=== PATIENT | female | born 1940 | race Caucasian/White ===

== ENCOUNTER 2016-06-07 09:18 | Outpatient (RCR) | payer MEDICARE, OTHER ==
[~2016-06-07 09:18] MED LIST: ANTIVERT 25MG25 MG PO; ASPIR-LOW81 MG PO; ATIVAN 0.50.5 MG/TAB PO; BENICAR/HCTZ PO; BENICAR20 MG PO; BENICAR5 MG PO; CALTRATE-600 W600 MG PO; FISH OIL CONC1000 MG PO; FISH OIL500 MG PO; FLOVENT DI50 MCG/Act; GLUCOSAMINE PO; IRON FERROUS S325 MG PO; IRON PLUS PO; LISINOPRIL/HCTZ1 TAB PO; NIACIN TIME RE500 MG PO; PRILOSEC PO; STOOL SOFTENER100 MG PO; TRIAMTERENE AND1 TA1 PO; TYLENOL 325MG325 MG PO; ZOFRAN 4MG T4 MG/TAB PO
== END 2016-09-05 | disposition still patient (30) ==
LOC: MKS.ESL.PT
DX: H83.01 Labyrinthitis, right ear (principal)
CPT/HCPCS: G8978-GP; G8979-GP

== ENCOUNTER → 2016-08-30 | Outpatient (CLI) | payer MEDICARE, OTHER | LOC: MC.RAD 10:20 | DX: Z12.31 Encounter for screening mammogram for malignant neoplasm of breast (principal); N63 Unspecified lump in breast ==

== ENCOUNTER → 2016-09-01 | Outpatient (CLI) | payer MEDICARE, OTHER | LOC: MC.RAD 14:00 | DX: N63 Unspecified lump in breast (principal) ==

== ENCOUNTER → 2018-01-31 | Outpatient (CLI) | payer MEDICARE, OTHER | LOC: MC.RAD 13:00 | DX: Z12.31 Encounter for screening mammogram for malignant neoplasm of breast (principal) ==

== ENCOUNTER → 2018-08-04 | Outpatient (CLI) | payer MEDICARE, OTHER | LOC: COL.RAD 08:23 | DX: E21.3 Hyperparathyroidism, unspecified (principal) | CPT/HCPCS: A9500 ==

== ENCOUNTER → 2019-03-13 | Outpatient (CLI) | payer MEDICARE, OTHER | LOC: MC.RAD 10:30 | DX: Z12.31 Encounter for screening mammogram for malignant neoplasm of breast (principal); N60.19 Diffuse cystic mastopathy of unspecified breast; N64.89 Other specified disorders of breast ==

== ENCOUNTER 2019-04-04 03:41 | Observation (INO) | payer MEDICARE, OTHER ==
[~2019-04-04] VITALS: Ht 165.1 cm; Wt 74.8 kg
[2019-04-04] VITALS (9 sets, daily range): BP systolic 103–143; BP diastolic 54–82; PULSE 52–69; TEMP 97.9–98.4
[2019-04-04] MEDS ORDERED: HYZAAR 50-12.1 UDTAB PO (03:54)
[2019-04-04 04:55] LABS: BASO % 0.5 % (0.0-2.0); EOS # 0.2 (0.0-0.7); EOS % 2.7 % (0-4.0); GRAN # 4.2 (1.4-6.5); GRAN % 71.4 % (42.2-75.2); HEMATOCRIT 43.7 % (37.0-47.0); HEMOGLOBIN 13.8 g/dl (12.5-16.0); LYMPH # 0.9 (1.2-3.4); MEAN CELL VOLUME 91 fl (80.0-100.0); MEAN CORPUSCULAR HEMOGLOBIN 29 pg (27.0-31.0); MEAN CORPUSCULAR HGB CONC 32 g/dl (33.0-37.0); MEAN PLATELET VOLUME 9.6 fl (7.4-10.4); MONO # 0.6 (0.1-0.6); MONO % 10.1 % (1.7-9.3); PLATELET COUNT 211 K/mm3 (130-400); RED BLOOD COUNT 4.81 M/mm3 (4.10-5.30); REDCELL DISTRIBUTION WIDTH-CV 13.2 % (11.5-14.5)
[2019-04-04 05:05] LABS: ALANINE AMINOTRANSFERASE 29 U/L (9-52); ALKALINE PHOSPHATASE 56 U/L (50-136); ANION GAP 7 mmol/L (7-16); AST,SGOT 29 U/L (15-37); BILIRUBIN,TOTAL 0.4 mg/dL (0.0-1.0); BLOOD UREA NITROGEN 18 mg/dL (7-17); CALCIUM 9.8 mg/dL (8.4-10.2); CARBON DIOXIDE 29 mmol/L (22-30); CHLORIDE 107 mmol/L (98-107); CREATININE, serum 0.79 (0.52-1.25); GLUCOSE 140 mg/dL (74-106); PHOSPHOROUS 3.1 mg/dL (2.5-4.5); POTASSIUM 3.4 mmol/L (3.4-5.0); SODIUM 143 mmol/L (137-145); TOTAL PROTEIN 6.9 gm/dL (6.4-8.2)
[2019-04-04 05:19] LABS: TROPONIN-I < 0.012 ng/mL (0.000-0.035)
[2019-04-04] MEDS ORDERED: MULTI VITAMINS1 TAB PO (06:17)
[2019-04-04 07:04] LABS: COLLECTION METHOD CLEAN CATCH
--- NOTE | 2019-04-04 07:09 | NUR ---
Report given to day shift nurse.
[2019-04-04 07:15] LABS: PH 6 (5-8); SQUAMOUS EPITHELIAL 0-2 /hpf; URINE APPEARANCE Clear; URINE BACTERIA None Seen /hpf; URINE BILIRUBIN Negative (NEGATIVE); URINE BLOOD Negative (NEGATIVE); URINE COLOR Yellow; URINE GLUCOSE Negative (NEGATIVE); URINE KETONE Negative (NEGATIVE); URINE LEUKOCYTE ESTERASE Negative (NEGATIVE); URINE NITRATE Negative (NEGATIVE); URINE PROTEIN(semi-quant) Negative (NEGATIVE); URINE RBC 0-2 /hpf; URINE UROBILINOGEN Negative (NEGATIVE)
[2019-04-04] MEDS ORDERED: CBD CREAM (09:40)
--- NOTE | 2019-04-04 09:49 | NUR ---
Bmet attended clinical rounds with the team. SW then met with patient to discuss discharge planning. Patient lives about 20 minutes outside of [facility] with her , Rmey (ph#[phone]). Patient sees Dr. Denton for primary care and obtains medications from [facility] in [place] with no difficulties. Patient has a cane and walker she uses as needed for back problems, but reports overall independence with ADLS. Patient plans to return home upon discharge. No additional concerns at this time.
--- NOTE | 2019-04-04 10:03 | NUR ---
Initial visit; Patient thanked Roll Threader Operator for looking in on her and offering God's blessings.
--- NOTE | 2019-04-04 10:08 | NUR ---
Assessment complete. Patient sitting up in chair. Alert and oriented. She has no complaints of pain or discomfort. IV site is CD&I, flushed well. No further needs were expressed. Call light is within reach.
--- NOTE | 2019-04-04 18:38 | NUR ---
Patient has had an uneventful day. She is strongly suggesting that she really wants to go home and that she does not need to be here. She was reminded that she is here to be monitored due to her syncopal episode and her bradycardia. Other than that patient has had no other complaints and has been comfortable all day. Call light within reach.
--- NOTE | 2019-04-04 20:30 | NUR ---
Patient assessed at this time. Alert and oriented x 4, and able to make needs known. Denies having pain and discomfort at this time. Peripheral IV to right AC flushed. Site is without redness, warmth, swelling, and pain. Denies having SOB and dyspnea. LS CTA. Respirations even and unlabored. HRR. Telemetry in place: sinus. Capillary refill less than 3 seconds. Non-tenting skin turgor. BSAx4. Abdomen soft and non-tender. Voices no questions, needs, or concerns at this time.
[2019-04-05 04:01] VITALS: BP 111/59; PULSE 67; TEMP 98.4
--- NOTE | 2019-04-05 04:54 | NUR ---
Patient has denied having pain and discomfort this shift. Has voiced no questions, needs, or concerns this shift. Call light is within reach.
--- NOTE | 2019-04-05 07:09 | NUR ---
Report given to day shift nurse.
[2019-04-05 08:30] VITALS: BP 135/67; PULSE 61; TEMP 97.9
[2019-04-05 09:26] LABS: BASO % 0.7 % (0.0-2.0); EOS # 0.2 (0.0-0.7); EOS % 2.9 % (0-4.0); GRAN # 3.7 (1.4-6.5); GRAN % 65.7 % (42.2-75.2); HEMATOCRIT 41.4 % (37.0-47.0); HEMOGLOBIN 13.1 g/dl (12.5-16.0); LYMPH # 1.3 (1.2-3.4); LYMPH % 22.8 % (20.0-51.0); MEAN CELL VOLUME 92 fl (80.0-100.0); MEAN CORPUSCULAR HEMOGLOBIN 29 pg (27.0-31.0); MEAN CORPUSCULAR HGB CONC 32 g/dl (33.0-37.0); MEAN PLATELET VOLUME 10.3 fl (7.4-10.4); MONO # 0.4 (0.1-0.6); MONO % 7.5 % (1.7-9.3); PLATELET COUNT 221 K/mm3 (130-400); RED BLOOD COUNT 4.52 M/mm3 (4.10-5.30); REDCELL DISTRIBUTION WIDTH-CV 13.3 % (11.5-14.5)
[2019-04-05 09:29] LABS: CALCIUM 9.8 mg/dL (8.4-10.2); CREATININE, serum 0.88 (0.52-1.25); POTASSIUM 4.1 mmol/L (3.4-5.0)
[2019-04-05 10:00] LABS: THYROID STIMULATING HORMONE 0.61 uIU/mL (0.465-4.680)
--- NOTE | 2019-04-05 10:02 | NUR ---
Assessment complete. Patient sitting in recliner. She states "I just really want to go home". She is aware of her plan of care. VS were stable and she denied any pain. She also denied any dizziness or headache. No further needs from the patient were expressed. Call light is within reach.
[2019-04-05 12:15] VITALS: BP 140/62; PULSE 62; TEMP 98
[2019-04-05] MEDS ORDERED: COZAAR 25MG25 MG/TAB PO (12:26)
--- NOTE | 2019-04-05 13:03 | NUR ---
Patient walked out at this time. Discharge instructions were discussed.
== END 2019-04-05 13:16 | disposition home or self-care (01) ==
LOC: COL.ER 03:41 → MEDICAL 05:31
PROVIDERS: Emergency Medicine; Nurse Practitioner Family; ADMIT Student in an Organized Health Care Education/Training Program
DX: R55 Syncope and collapse (principal); I07.1 Rheumatic tricuspid insufficiency; Z86.73 Personal history of transient ischemic attack (TIA), and cerebral infarction without residual deficits; Z88.8 Allergy status to other drugs, medicaments and biological substances; Z79.82 Long term (current) use of aspirin; Z90.710 Acquired absence of both cervix and uterus
CPT/HCPCS: G0378; J7030

== ENCOUNTER 2020-05-28 11:24 | Emergency (ER) | payer MEDICARE, OTHER ==
[2004-11-24 09:02] VITALS: BP 135/71
[~2020-05-28] VITALS: Ht 167.6 cm; Wt 74.1 kg
[~2020-05-28 11:24] MED LIST changes: +CBD CREAM; +COZAAR 25MG25 MG/TAB PO; +HYZAAR 50-12.1 UDTAB PO; +MULTI VITAMINS1 TAB PO
[2020-05-28 11:53] VITALS: PULSE 58; TEMP 97.2
[2020-05-28 13:22] VITALS: BP 168/97
[2020-05-28] MEDS ORDERED: MICROZIDE12.5 MG PO (16:31)
== END 2020-05-28 13:22 | disposition left against medical advice (07) ==
LOC: COL.ER 11:24
DX: I10 Essential (primary) hypertension (principal); Z88.8 Allergy status to other drugs, medicaments and biological substances; Z79.82 Long term (current) use of aspirin; Z79.02 Long term (current) use of antithrombotics/antiplatelets

== ENCOUNTER 2020-05-28 14:24 | Observation (INO) | payer MEDICARE, OTHER ==
[~2020-05-28] VITALS: Ht 167.7 cm; Wt 76.3 kg
--- NOTE | 2020-05-28 16:26 | NUR ---
Pt admitted to medical unit rm 315, sitting up by the window, A&O x 4. Pt ambulating in room with steady gait. Pt reports having chest pressure earlier today, none at this time. POC reviewed with pt and room orientation reviewed. No further needs reported. Call light in reach.
[2020-05-28] MEDS ORDERED: MICROZIDE12.5 MG PO (16:31)
[2020-05-28 17:00] VITALS: BP 151/93; PULSE 75; TEMP 97.5
[2020-05-28 17:04] LABS: BASO % 0.6 % (0.0-2.0); EOS # 0.1 (0.0-0.7); GRAN # 4.9 (1.4-6.5); GRAN % 69.2 % (42.2-75.2); HEMATOCRIT 46.5 % (37.0-47.0); HEMOGLOBIN 15.2 g/dl (12.5-16.0); LYMPH # 1.4 (1.2-3.4); LYMPH % 19.5 % (20.0-51.0); MEAN CELL VOLUME 86 fl (80.0-100.0); MEAN CORPUSCULAR HEMOGLOBIN 28 pg (27.0-31.0); MEAN CORPUSCULAR HGB CONC 33 g/dl (33.0-37.0); MONO # 0.6 (0.1-0.6); MONO % 8.4 % (1.7-9.3); PLATELET COUNT 252 K/mm3 (130-400); RED BLOOD COUNT 5.39 M/mm3 (4.10-5.30); REDCELL DISTRIBUTION WIDTH-CV 13.8 % (11.5-14.5)
[2020-05-28 17:09] LABS: INR 1.1 (0.8-3.0); PROTHROMBIN TIME 11.8 SECONDS (9.7-12.8)
[2020-05-28 17:12] LABS: PARTIAL THROMBOPLASTIN TIME 30.3 SECONDS (26.0-37.0)
--- NOTE | 2020-05-28 18:52 | NUR ---
Pt resting in bed, denies pain or needs at this time. Report with JESSICA Joyner. Call light in reach.
[2020-05-28 19:12] VITALS: BP 150/86; PULSE 72; TEMP 97.7
[2020-05-28 19:13] LABS: ALANINE AMINOTRANSFERASE 23 U/L (4-34); ALBUMIN 4.6 gm/dL (3.5-5.0); ALKALINE PHOSPHATASE 57 U/L (50-136); ANION GAP 6 mmol/L (7-16); AST,SGOT 37 U/L (15-37); BLOOD UREA NITROGEN 14 mg/dL (7-17); CARBON DIOXIDE 33 mmol/L (22-30); CHLORIDE 100 mmol/L (98-107); CHOLESTEROL 262 mg/dL (120-200); CHOLESTEROL RISK RATIO 4.5; CREATINE KINASE 189 U/L (30-135); CREATININE, serum 0.81 (0.52-1.25); GLUCOSE 128 mg/dL (74-106); HDL CHOLESTEROL 57 mg/dL; LDL CHOLESTEROL 189 mg/dL; MAGNESIUM 2.1 mg/dL (1.6-2.3); POTASSIUM 3.5 mmol/L (3.4-5.0); SODIUM 139 mmol/L (137-145); TOTAL PROTEIN 7.9 gm/dL (6.4-8.2); TRIGLYCERIDE 80 mg/dL
[2020-05-28 19:23] LABS: TROPONIN-I < 0.012 ng/mL (0.000-0.035)
[2020-05-28 23:49] VITALS: BP 126/69; PULSE 73; TEMP 98
[2020-05-29] VITALS (28 sets, daily range): BP systolic 66–154; BP diastolic 34–87; PULSE 60–96; TEMP 97.6–98.3
--- NOTE | 2020-05-29 04:52 | NUR ---
PT SLEPT THROUGH NIGHT. DENIES ANY CHEST PRESSURE. REMAINS NPO FOR TEST. NEEDS MET.
--- NOTE | 2020-05-29 07:00 | NUR ---
Report with JESSICA Joyner. Pt sitting up in chair visiting with radiology nurse, denies needs at this time. Call light in reach.
--- NOTE | 2020-05-29 07:45 | NUR ---
Assessment complete. Pt sitting up in chair, A&O x 4, denies pain at this time. Physical assessment unremarkable. Saline lock IV to left AC without s/s of complications. POC for testing reviewed with pt. No further needs reported. Call light in reach.
--- NOTE | 2020-05-29 09:00 | NUR ---
Pt off floor to [facility] for stress test.
--- NOTE | 2020-05-29 09:28 | NUR ---
REDRESSED SITE. NO LEAKING OR INFILTRATION
--- NOTE | 2020-05-29 09:41 | NUR ---
DR GU NOTIFIED OF PT CONDITION, ORDERS RECIEVED FOR NS BOLUS X1. JESSICA NOTIFIED.
--- NOTE | 2020-05-29 09:46 | NUR ---
NS BOLUS HUNG AND INFUSING.PT MUST KEEP HER ARM STRAIGHT
--- NOTE | 2020-05-29 11:16 | NUR ---
Pt back to room following testing, awake and alert but feeling worn out. PA notified of drop in BP during testing. BP meds held per verbal order. Coffee and water provided, will check on whether pt is allowed to eat lunch. No further needs reported. Call light in reach.
[2020-05-29 12:17] LABS: HEMATOCRIT 47.1 % (37.0-47.0); MEAN CELL VOLUME 89 fl (80.0-100.0); MEAN CORPUSCULAR HEMOGLOBIN 28 pg (27.0-31.0); MEAN CORPUSCULAR HGB CONC 32 g/dl (33.0-37.0); PLATELET COUNT 297 K/mm3 (130-400); RED BLOOD COUNT 5.32 M/mm3 (4.10-5.30); REDCELL DISTRIBUTION WIDTH-CV 13.9 % (11.5-14.5)
--- NOTE | 2020-05-29 15:19 | NUR ---
Line Person met with the patient and her , Remy to complete intake. The patient [place] in [place] with Remy. The patient denies DME use and is independent. The patient's PCP is Dr. Albright and patient receives medications from [facility]. The patient has advanced directives. The patient plans to return home at discharge. There are no additional needs.
--- NOTE | 2020-05-29 15:51 | NUR ---
Post lexiscan stress test another blood pressure was taken to ensure the patient was ready to go back for imagining. After blood pressure was taken patient was found to have a continous drop in blood pressure and progressivly worsening. Dr. Thakkar was notified and came to evaluate patient further. Medication was then given to patient by RN and patients blood pressure returned to normal and Dr. Raines cleared patient to go back for imaging.
--- NOTE | 2020-05-29 17:45 | NUR ---
Pt ambulating in hallway with steady gait, denies pain or needs. POC for tomorrow reviewed with pt.
--- NOTE | 2020-05-29 22:36 | NUR ---
2030- PT WALKING AROUND IN ROOM. ASSESSMNT AND VITALS COMPLETE. DENIES PAIN, SOA OR DIZZY. DOES STATE THAT SHE MORE TIRED THIS EVENING AND FEELS WORE OUT. WILL BE NPO AT 12 FOR AM HEART CATH. IV TO LEFT AC LEAKING AND PAINFUL. DC'D. IV NEW START TO RT FA. FLUSHED W GOOD BLOOD RETURN. SALINE LOCKED. SHOWERED AND READY FOR BED. POC DISCUSSED. NEEDS MET.
[2020-05-30] VITALS (10 sets, daily range): BP systolic 107–163; BP diastolic 67–90; PULSE 52–73; TEMP 97.9–98.2
--- NOTE | 2020-05-30 05:00 | NUR ---
SLEPT ALL NIGHT WITHOUT INCIDENT. NPO FOR HEART CATH. CONSENT SIGNED. ASPIRIN GIVEN PER ORDER W SIP OF WATER. NEEDS MET.
[2020-05-30 06:51] LABS: INR 1.1 (0.8-3.0); PROTHROMBIN TIME 12.3 SECONDS (9.7-12.8)
[2020-05-30 06:53] LABS: PARTIAL THROMBOPLASTIN TIME 34.2 SECONDS (26.0-37.0)
[2020-05-30 06:56] LABS: CREATININE, serum 0.77 (0.52-1.25); POTASSIUM 3.5 mmol/L (3.4-5.0)
--- NOTE | 2020-05-30 09:33 | NUR ---
Follow-up; Patient thanked Butadiene Convertor Operator for leaving her card yesterday while she was out of her room. Patient recalls visiting with Butadiene Convertor Operator a year ago when she was a patient for similar issues. Patient talked about her health and thanked Butadiene Convertor Operator for wishing her well and offering God's blessings.
--- NOTE | 2020-05-30 12:20 | NUR ---
Patient arrived back to room 315 from manager labor relations at this time, alert/oriented, vital signs stable, denies pain, right radial puncture site looks good, TR band in place with 15cc air, will begin to release pressure around 1345
--- NOTE | 2020-05-30 13:48 | NUR ---
Primary nurse was assisted with [id number] patient care by [employer] student Guerline Lopez and [employer] instructor Jeniffer Todd RN-.
--- NOTE | 2020-05-30 14:00 | NUR ---
released 5cc of air, no bleeding noted
--- NOTE | 2020-05-30 14:20 | NUR ---
continues to do well post heart cath, Vitals remain stable, TR band completlely deflated and no signs of bleeding or oozing
[2020-05-30] MEDS ORDERED: PLAVIX 75MG TAB75 MG PO (16:34)
[2020-05-30] MEDS ORDERED: COZAAR 25MG25 MG/TAB PO (16:35)
[2020-05-30] MEDS ORDERED: ZETIA 10MG TAB10 MG PO (16:35)
[2020-05-30] MEDS ORDERED: EPA FISH OIL1 SGL PO (16:35)
--- NOTE | 2020-05-30 16:55 | NUR ---
Patient discharging home, discussed new meds and med changes, scripts sent to pharmacy for her, isntructed to follow up as scheduled, IV and tele removed, right radial puncutre site looks good and bandaid applied, leaving with her , BIOINFORMATICS RESEARCH TECHNICIAN will escort her out the door
== END 2020-05-30 18:04 | disposition home or self-care (01) ==
LOC: MEDICAL 14:24
PROVIDERS: ADMIT Internal Medicine
DX: R07.89 Other chest pain (principal); I10 Essential (primary) hypertension; I25.10 Atherosclerotic heart disease of native coronary artery without angina pectoris; I25.9 Chronic ischemic heart disease, unspecified; G45.9 Transient cerebral ischemic attack, unspecified; I45.10 Unspecified right bundle-branch block; I08.1 Rheumatic disorders of both mitral and tricuspid valves; I44.0 Atrioventricular block, first degree; K44.9 Diaphragmatic hernia without obstruction or gangrene; R55 Syncope and collapse; I95.89 Other hypotension; Z20.822 Contact with and (suspected) exposure to COVID-19; Z86.73 Personal history of transient ischemic attack (TIA), and cerebral infarction without residual deficits; Z79.82 Long term (current) use of aspirin; Z79.899 Other long term (current) drug therapy
CPT/HCPCS: 99233-AI; A9500; C1769; G0378; J0280; J1644; J1650; J2250; J3010; J7030; Q9967

== ENCOUNTER 2021-11-13 08:21 | Day surgery (SDC) | payer MEDICARE ==
[2004-11-24 09:02] VITALS: BP 135/71
[2021-11-13] VITALS (12 sets, daily range): BP systolic 109–144; BP diastolic 64–82; PULSE 54–72; TEMP 97.4–99.1
[~2021-11-13] VITALS: Ht 167.6 cm; Wt 79.5 kg
[~2021-11-13 08:21] MED LIST changes: +EPA FISH OIL1 SGL PO; +MICROZIDE12.5 MG PO; +PLAVIX 75MG TAB75 MG PO; +ZETIA 10MG TAB10 MG PO
[2021-11-13 09:12] LABS: HEMATOCRIT 40.7 % (37.0-47.0); HEMOGLOBIN 13.4 g/dl (12.5-16.0); MEAN CELL VOLUME 87 fl (80.0-100.0); MEAN CORPUSCULAR HEMOGLOBIN 29 pg (27-31); MEAN CORPUSCULAR HGB CONC 33 g/dl (33.0-37.0); MEAN PLATELET VOLUME 9.6 fl (7.4-10.4); PLATELET COUNT 249 K/mm3 (130-400); RED BLOOD COUNT 4.66 M/mm3 (4.10-5.30); REDCELL DISTRIBUTION WIDTH-CV 13.3 % (11.5-14.5)
[2021-11-13] MEDS ORDERED: TAMBOCOR50 MG PO (09:23)
[2021-11-13] MEDS ORDERED: TOPROL XL 25MG25 MG PO (09:24)
[2021-11-13] MEDS ORDERED: ELIQUIS 5MG PO (09:25)
[2021-11-13 09:30] LABS: CALCIUM 10.4 mg/dL (8.4-10.2); CREATININE, serum 0.88 mg/dL (0.57-1.11); INR 1.1 (0.8-3.0); POTASSIUM 4.2 mmol/L (3.5-4.5); PROTHROMBIN TIME 12.5 SECONDS (9.7-12.8)
--- NOTE | 2021-11-13 11:19 | NUR ---
SEE MERGE FOR ALL MEDICATION ADMINISTRATION TIMES, INTRA AND POST SEDATION ASSESMENT.
--- NOTE | 2021-11-13 12:40 | NUR ---
PT TO ROOM 308 PER BED, VSS, PT A&O X4, PT ABLE TO MAKE NEEDS KNOWN, PT RESTING IN BED, DENIES PAIN, FALL PRECUATIONS IN PLACE, PT EDUCATED ON PLAN OF CARE, CALL LIGHT IN REACH
--- NOTE | 2021-11-13 23:29 | NUR ---
Pt alert and oriented. Follows commands. VS stable. On room air. Denies chest pain/SOB. Noted incision sites on the left upper chest and middle chest from pacemaker placement and loop recorder removal. Both dressings are clean/dry/intact. No edema/bleeding/bruising noted at the incision sites. Pt's left arm remains in sling. Post pacemaker placement education provided. HOB 30 degrees and ice applied to site. Pt up to void with standby assistance. threat monitoring analyst on. Fall precautions in place. Pt tolerating PO. Shift assessment performed. Medications administered per orders and education provided. No significant skin issues noted. PO antibx administered per orders. Bed low and locked, call erazo within reach. No other concerns at this time.
[2021-11-14 04:46] VITALS: BP 121/71; PULSE 61; TEMP 98.3
--- NOTE | 2021-11-14 05:13 | NUR ---
No adverse events overnight. Pt alert and oriented. VS stable. On room air. Pacemaker and loop recorder sites remain clean/dry/intact, no bleeding/edema/bruising noted. Left arm remains in sling. HOB 30 degrees. Ice applied overnight. Pt denies chest pain/SOB. Will perform device download this morning per orders. Telemetry on. Fall precautions in place. Bed low and locked, call erazo within reach. No new concerns at this time.
--- NOTE | 2021-11-14 07:38 | NUR ---
VSS, PT UP IN CHAIR, DENIES PAIN, FALL PRECATIONS IN PLACE, LUE IN SLING,
[2021-11-14 07:40] VITALS: BP 141/121; PULSE 72; TEMP 97.8
[2021-11-14] MEDS ORDERED: CEPHALEXIN500 M1 PO (08:01)
[2021-11-14] MEDS ORDERED: TAMBOCOR50 MG PO (08:01)
[2021-11-14 08:27] VITALS: BP 126/82
--- NOTE | 2021-11-14 09:54 | NUR ---
PT DISMISSED TO HOME, PT'S IV DC'D, PT EDUCATED ON DISMISSAL INSTRUCTIONS/MEDICATION INSTRUCTIONS/FOLLOW UP INSTRUCTIONS, PT VOICED NO QUESTIONS/CONCERN AT TIME OF DISMISSAL, PT AMBULATED TO EXIT, NO FURTHER CONCERNS
== END 2021-11-14 09:46 | disposition home or self-care (01) ==
LOC: COL.CAR 08:21 → MEDICAL 12:38 → COL.CAR 11-14 09:46
PROVIDERS: Internal Medicine Cardiovascular Disease
DX: I49.5 Sick sinus syndrome (principal); I48.0 Paroxysmal atrial fibrillation; I10 Essential (primary) hypertension; E78.2 Mixed hyperlipidemia; I45.5 Other specified heart block; I34.0 Nonrheumatic mitral (valve) insufficiency; I36.1 Nonrheumatic tricuspid (valve) insufficiency; Z91.89 Other specified personal risk factors, not elsewhere classified; Z79.01 Long term (current) use of anticoagulants; Z86.73 Personal history of transient ischemic attack (TIA), and cerebral infarction without residual deficits; Z79.899 Other long term (current) drug therapy
CPT/HCPCS: OP; C1785; C1894; C1898; J0690; J2250; J3010; J7030; Q9967